=== PATIENT | female | born 1980 | race Caucasian/White ===

== ENCOUNTER → 2017-03-06 | Outpatient (CLI) | payer BC ==
[~2017-03-06] MED LIST: LORTAB 5/500 TA1 TA2 PO; PHENERGAN PO
[2017-03-06 08:01] LABS: ALBUMIN SERUM 3.4 g/dL (3.5-5.0); BUN/CREATININE RATIO 23.33; CALCIUM SERUM 8.9 mg/dL (8.4-10.2); CREATININE SERUM 0.6 mg/dL (0.6-1.4); GLOM FILT RATE Estimated 116.4 mL/min (>60); PROTEIN TOTAL SERUM 6.4 g/dL (6.0-8.3)
== END | disposition home or self-care (01) ==
LOC: CLAB 06:45
PROVIDERS: Nurse Practitioner Family
DX: Z13.220 Encounter for screening for lipoid disorders (principal); I10 Essential (primary) hypertension
CPT/HCPCS: 36415; 80053; 80061

== ENCOUNTER 2017-06-27 01:30 | Emergency (ER) | payer BC ==
[~2017-06-27] VITALS: Ht 165.1 cm; Wt 136.1 kg
--- NOTE | ~2017-06-27 | CT2 ---
[facility] A Service of [facility] RADIOLOGY TEXT RESULTS PATIENT: GURU NEELY LOCATION: [facility] : 78 UNIT #: [id number] AGE: [address]: Marielena Spain APRN SEX: F ORDER DR: [id number] [facility] [address] [place], [place] [address] [id number] MR#: [id number] Acc #: [id number] NAME: GURU NEELY. : 1980 SEX: F STUDY DATE/TIME: 06/27/2017 04:28 UNIT: [facility] ROOM: STUDY DESCRIPTION: CT Abd and Pelv W Cont Attending Physician: Marielena Spain A.P.R.N. Ordering Physician: Marielena Spain A.P.R.N. Primary Care Physician: Thomas Reynolds M.D. MEDICAL IMAGING REPORT This report is preliminary unless electronic signature is present EXAM CT abdomen and pelvis, 06/27 at 04:28 INDICATIONS Abdominal pain for 1-2 weeks. Kidney stones. TECHNIQUE Axial images were obtained through the abdomen and pelvis following IV contrast administration. Multiplanar reformats were obtained. This CT exam was performed with one or more of the following radiation dose reduction techniques: automatic exposure control, adjustment of mA and/or kV according to patient size, and iterative reconstruction. COMPARISON 03/24/2011 FINDINGS ABDOMEN: Lung bases are clear. Gallbladder is surgically absent. No biliary obstruction. Solid organs are normal. No free fluid or adenopathy. The unopacified GI tract is normal. PELVIS: The appendix is normal. There is mild colonic diverticulosis, and there is no diverticulitis. The GI tract is otherwise unremarkable. Urinary bladder is normal. Uterus is unremarkable. There is a large cystic lesion in the pelvis measuring about 13.2 x 9.4 x 11.1 cm. There is presumably a very large right ovarian cyst. At minimum I would recommend a followup pelvic ultrasound in about 6 weeks. However, given the large size of the lesion, consider ALBER[facility]TER followup. IMPRESSION 1. Large cystic lesion in the pelvis measuring over 13 cm in greatest dimension. This is likely a large right ovarian cyst. At minimum I [facility] A Service of [facility] & [facility] RADIOLOGY TEXT RESULTS PATIENT: GURU NEELY LOCATION: [facility] : 78 UNIT #: [id number] AGE: [address]: Marielena Spain APRN SEX: F ORDER DR: would suggest a followup pelvic ultrasound in about 6 weeks. Given the lesion's large size, consider ALBERENE STONE SETTER followup. 2. Mild colonic diverticulosis. The GI tract, including the appendix, is otherwise normal. 3. Cholecystectomy without biliary obstruction. 4. Normal nonobstructed kidneys. Dictated by... Thmoas Avelar Jr., M.D. THIS IS AN ELECTRONICALLY VERIFIED REPORT Thomas Avelar Jr., M.D. at 06/28/2017 9:13 PM IVAN/reno TD: 06/28/2017 09:33 JOB #: [id number] MEDICAL IMAGING REPORT Page 1 of 1 COPY
[2017-06-27 03:01] LABS: BASOPHIL# 0.1 X10e3 (0-0.3); BASOPHIL% 0.6 % (0-2.5); EOSINOPHIL# 0.1 X10e3 (0-0.7); HEMATOCRIT 35.4 % (35.0-45.0); HEMOGLOBIN 11.4 gm/dL (12.0-16.0); LYMPHOCYTE# 2.2 X10e3 (1.0-3.5); LYMPHOCYTE% 23.6 % (17.0-45.0); MEAN CELL VOLUME 82.9 FL (83-96); MEAN CORPUSCULAR HEMOGLOBIN 26.8 PG (28-34); MEAN CORPUSCULAR HGB CONC 32.3 g/dL (30-36); MONOCYTE# 0.3 X10e3 (0-1.0); MONOCYTE% 3.2 % (3.0-12.0); NEUTROPHIL# 6.6 X10e3 (1.5-7.1); NEUTROPHIL% 71.6 % (40-75); PLATELET COUNT 339 X10e3 (140-420); RED BLOOD COUNT 4.27 X10e (3.90-5.30); RED CELL DISTRIBUTION WIDTH 15.6 % (11.0-15.5); WHITE BLOOD COUNT 9.2 X10e3 (4.0-10.5)
[2017-06-27 03:01] LABS: URINE SOURCE CLEAN CATCH
[2017-06-27 03:02] LABS: DIFF IND NO
[2017-06-27 03:05] LABS: URINE APPEARANCE CLOUDY; URINE BILIRUBIN NEG (NEG); URINE BLOOD NEG (NEG); URINE COLOR YELLOW; URINE GLUCOSE NEG (NEG); URINE KETONE NEG (NEG); URINE LEUKOCYTE ESTERASE NEG (NEG); URINE NITRATE NEG (NEG); URINE PH 6.5 (5-8); URINE PROTEIN NEG (NEG); URINE SPECIFIC GRAVITY 1.027 (1.003-1.035)
[2017-06-27 03:15] LABS: CULTURE INDICATED? NO
[2017-06-27 03:24] LABS: ALBUMIN SERUM 3.4 g/dL (3.5-5.0); BILIRUBIN, DIRECT 0.1 mg/dL (0.0-0.2); BILIRUBIN,INDIRECT 0.8 mg/dL (0.0-0.9); BILIRUBIN,TOTAL 0.9 mg/dL (0.2-2.0); BUN/CREATININE RATIO 16.66; CALCIUM SERUM 8.4 mg/dL (8.4-10.2); CREATININE SERUM 0.6 mg/dL (0.6-1.4); GLOM FILT RATE Estimated 115.6 mL/min (>60); PROTEIN TOTAL SERUM 6.6 g/dL (6.0-8.3)
== END 2017-06-27 08:00 | disposition home or self-care (01) ==
LOC: CED 01:30
PROVIDERS: Nurse Practitioner
DX: N83.201 Unspecified ovarian cyst, right side (principal); I10 Essential (primary) hypertension; F41.9 Anxiety disorder, unspecified; F32.9 Major depressive disorder, single episode, unspecified; Z79.899 Other long term (current) drug therapy
CPT/HCPCS: 36415; 74177; 80048; 80076; 81003; 82150; 83690; 84703; 85025; 96361; 96374; 96375; 96376; 99284; J1170; J1885; J2270; J2405; Q9967